=== PATIENT | male | born 1970 | race Caucasian/White ===

== ENCOUNTER 2020-05-20 17:57 | Emergency (ER) | payer BC ==
[2020-05-20] MEDS ORDERED: DIPH,PERTUS(ACELL)TETVAC-LF 0.5 ML VIAL IM ONE (18:09)
[2020-05-20] MEDS ORDERED: SODIUM CHLORIDE 0.9% 500 ML 500 ML IV STA (18:09)
[2020-05-20 18:10] VITALS: RESP 20
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
[2020-05-20] MEDS ORDERED: ACET/COD 300 MG/30 MG STARTER PACK 6 TAB BTL PO STA (19:25)
[2020-05-20 20:14] VITALS: BP 145/65; PULSE 88; TEMP 98.5
== END 2020-05-20 19:50 | disposition home or self-care (01) ==
LOC: EC 17:57
DX: S81.832A Puncture wound without foreign body, left lower leg, initial encounter (principal); Z87.891 Personal history of nicotine dependence; W34.00XA Accidental discharge from unspecified firearms or gun, initial encounter
CPT/HCPCS: 86900; 86901; 86850; 73590; 90715; 99284; 96365; 90471; J0690